=== PATIENT | male | born 1970 | race Caucasian/White ===

== ENCOUNTER 2025-06-25 09:57 | Day surgery (SDC) | payer OTHER ==
--- NOTE | 2025-06-17 11:04 | ELECTROCARDIOGRAPH REPORT ---
[facility] Test Date: 2025-06-17 Test Time: 11:01:28 Pat Name: SULLY SHIELDS Department: [facility]-PRE-OP Patient ID: [facility]-[id number] Room: Gender: M Bullard Operator: RAUL : 1970 Requested By: BRANDY IVERSON Order Number: [id number] Reading MD: Dr. Sukumar Norman Measurements Intervals Gilbert Rate: 82 P: 55 MD: 145 QRS: 43 QRSD: 86 T: 72 QT: 346 QTc: 404 Interpretive Statements Sinus rhythm Abnormal R-wave progression, early transition Electronically Signed On 06-19-2025 14:31:[address] Sukumar Norman Please click the below link to view image of tracing.
[2025-06-17 11:11] LABS: MEAN PLATELET VOLUME 7.5 FL (7.4-10.4); PRE OP HEMATOCRIT 47.1 % (42.0-52.0); PRE OP HEMOGLOBIN 15.9 g/dL (14.0-17.9); PRE OP PLATELET COUNT 283 X10'3 (140-440); PRE OP WHITE BLOOD COUNT 8.4 10'3 (4.8-10.8); RED CELL DISTRIBUTION WIDTH 13.4 % (11.5-14.5)
[2025-06-17 11:32] LABS: CREATININE 0.80 MG/DL (0.60-1.10); PRE OP ALT 45 U/L (30-65); PRE OP ANION GAP 7 (8-16); PRE OP AST 23 U/L (10-37); PRE OP BILIRUB, TOTAL 0.4 MG/DL (0.0-1.0); PRE OP GLUCOSE 110 MG/DL (70-104); PRE OP POTASSIUM 4.3 MMOL/L (3.4-5.1); PRE OP SODIUM 141 MMOL/L (135-145); TOTAL CARBON DIOXIDE 27.7 MMOL/L (24-32); eGFR > 90 ML/MIN
[2025-06-25] VITALS (10 sets, daily range): BP systolic 129–173; BP diastolic 86–116; PULSE 85–100; RESP 13–36; TEMP 98; O2SAT 94–99
[~2025-06-25] VITALS: Ht 185.4 cm; Wt 121.1 kg
[~2025-06-25 09:57] MED LIST: ACET-1025 PO; Cefazolin 3 GM/100ML NS IVPB 100 ML IV ONE; IBUP600T52 PO; LIDO35.4 TOP
[2025-06-25] MEDS: ringers solution, lacted 1,000 ML IV SCH (10:40)
[2025-06-25] MEDS ORDERED: labetalol 20mg/4ml (5mg/ml) syringe IV PRN (10:50)
[2025-06-25] MEDS ORDERED: HYDROmorphone inj. 0.5 MG/0.5 ML DISP.SYRIN IV PRN ×2 (10:50)
[2025-06-25] MEDS ORDERED: ringers solution, lacted 1,000 ML IV SCH (10:50)
[2025-06-25] MEDS ORDERED: ondansetron/PF 4mg/2ml inj IV PRN (10:50)
[2025-06-25] MEDS ORDERED: BUPIVAcaine/PF 2.5mg/ml (0.25%) 10ml vial ONE (11:24)
[2025-06-25] MEDS ORDERED: LIDOcaine 1% (10mg/ml)w/preservative inj. 20ml MDV ONE (11:24)
[2025-06-25] MEDS ORDERED: BUPIVAcaine/PF 5 mg/ml 10ml ONE (11:24)
[2025-06-25] MEDS ORDERED: BUPIVACAINE liposomal/PF 13.3 MG/ML 10mL vial IM ONE (11:25)
[2025-06-25] MEDS ORDERED: LIDOcaine 1% 30ml preserv. free vial ONE (12:24)
[2025-06-25] MEDS ORDERED: rocuronium 10mg/ml inj IV ONE (12:28)
[2025-06-25] MEDS ORDERED: LIDOcaine 2% (20mg/ml) 5ml vial ONE (12:28)
[2025-06-25] MEDS ORDERED: propofol inj 20 ML IV ONE (12:28)
[2025-06-25] MEDS ORDERED: fentaNYL/PF 50MCG/1 ML 2ML syringe ONE (12:28)
[2025-06-25] MEDS ORDERED: midazolam 1 mg/ML 2ml injection ONE (12:28)
--- NOTE | 2025-06-25 12:36 | HISTORY AND PHYSICAL ---
History & Physical Providers to CC CC: BRANDY IVERSON MD ~ History of Present Illness Reason for Admit\Complaint: Umbilical hernia History of Present Illness Interval history and physical exam Patient with a work-related umbilical hernia He is here today for elective repair He was seen in the office greater than 30 days ago but denies any change in his past medical history Please see previous history and physical exam for all pertinent details He is scheduled for robotic assisted laparoscopic mesh repair Allergies: Coded Allergies: No Known Allergies (Unverified , 06/24/25) Home Medications Home Medications Active Reported Lidocaine 5 % Oint...g. 1 Applic TOP PRN PRN Ibuprofen 600 Mg Tablet 1 Tab PO Q8H PRN with food Tylenol Extra Strength (Acetaminophen) 500 Mg Tablet 2 Tab PO TID PRN ROS ROS Reviewed and negative Exam Vitals: Vital Signs Date Time Temp Pulse Resp B/P (MAP) Pulse Ox O2 Delivery O2 Flow Rate FiO2 06/25/25 10:07 98.0 85 16 173/116 (135) 96 Room Air General: 55-year-old male in no acute distress Chest: Lungs clear to auscultation bilaterally Cardiovascular: Regular rate and rhythm without murmurs Abdomen: Reducible umbilical hernia 2-3 cm Problems: (1) Umbilical hernia Assessment & Plan: The risks, benefits, and alternatives to a robotic assisted, laparoscopic umbilical hernia repair with mesh were discussed with the patient. Risks include, but are not limited to, bleeding, infection, injury to intra- abdominal structures, hernia recurrence and chronic postoperative pain. Patient verbalized understanding and wishes to proceed with surgery. We will do so today as scheduled. BRANDY IVERSON MD Jun 25, 2025 12:36
[2025-06-25] MEDS ORDERED: dexamethasone sod phosphate 4mg/ml inj. ONE (12:41)
[2025-06-25] MEDS ORDERED: ondansetron/PF 4mg/2ml inj ONE (12:41)
[2025-06-25] MEDS ORDERED: glycopyrrolate 0.2mg/ml inj ONE (12:58)
[2025-06-25] MEDS: hydrALAZINE 20mg/ml inj. IV PRN (14:03)
[2025-06-25] MEDS ORDERED: oxyCODONE/APAP 5-325mg tablet PO PRN (14:10)
--- NOTE | 2025-06-25 14:11 | OPERATIVE REPORT ---
Operative Report Providers to CC CC: HITESH IVERSON MD ~ Date of Procedure: Jun 25, 2025 Pre-Operative Diagnosis: Umbilical hernia Post-Operative Diagnosis 2 cm umbilical hernia Procedure Performed Robotic assisted, laparoscopic 2 cm umbilical hernia repair with mesh Bilateral transversus abdominis plane nerve blocks by injection using 266 mg of Exparel Surgeon: Hitesh Iverson MD FACS Packaging Manager None Anesthesiologist: Dexter Bradley Type of Anesthesia: General Findings: 2 cm fascial defect at the level of the umbilicus with no herniated intra- abdominal contents Wound class I Complications None Prosthetics\Implants used: 15 cm diameter coated polyester mesh Estimated Blood Loss: Minimal Specimen Removed: None Description of Procedure: Patient was brought to the operating room and identified by the nursing staff and the attending physician. Patient was placed supine and a general anesthesia was induced. Preoperative antibiotics were given. The abdomen was prepped and draped in the standard sterile fashion. Through a left subcostal stab incision the abdomen was accessed with a Veress needle technique. Abdomen was insufflated without incident. The incision was lengthened to accommodate a 12 mm optical trocar and the abdomen was entered under laparoscopic visualization. The abdomen was surveyed laparoscopically. Hernia defect was noted at the level of the umbilicus. No intra-abdominal contents herniated. Under laparoscopic visualization, robotic trochars were placed in the left lateral and left lower quadrant. The [employer] robotic arm was docked to the patient and instruments guided intra-abdominally under laparoscopic visualization. Peritoneal rent was created just lateral of the umbilicus and carried towards the midline until a fascial defect was encountered. The di ssection was carried just below the umbilicus and the infraumbilical fat pad was mobilized inferiorly about 7 cm. The hernia sac was mobilized out of the umbilical hernia space and left attached to the falciform ligament which was mobilized superiorly about 7 cm allowing adequate space for mesh deployment. Hernia defect measured about 2 cm in diameter. Fascial defect(s) were then reapproximated with running, nonabsorbable, 0V lock suture. Good fascial apposition was obtained without significant tension. A coated polyester mesh was then fixed to the anterior abdominal wall with running, absorbable, 2/0, V lock suture. Mesh laid without wrinkles or folds. The mesh measured 12 cm The da Tay instruments were then removed and the robot undocked from the p atient. Bilateral transversus abdominis plane nerve blocks by injection were then placed under laparoscopic visualization using a combination of Marcaine and 266 mg of Exparel. The left subcostal trocar was removed and its fascia closed percutaneously with 0 Vicryl suture under laparoscopic visualization. Remaining trochars were removed after the abdomen was allowed to deflate. Skin was closed at all sites with 4-0 Monocryl sutures and dressed with sterile dressings. Patient was awakened and taken to the postanesthesia care unit in stable condition. Counts repoted as correct: Yes HITESH IVERSON MD Jun 25, 2025 14:11
[2025-06-25] MEDS: fentaNYL/PF 50MCG/1 ML 2ML syringe IV PRN ×2 (14:22→14:32)
== END 2025-06-25 15:26 | disposition home or self-care (01) ==
LOC: PAS 09:57
PROVIDERS: ATTEND Surgery
DX: K42.9 Umbilical hernia without obstruction or gangrene (principal); R94.31 Abnormal electrocardiogram [ECG] [EKG]; E66.9 Obesity, unspecified; G47.33 Obstructive sleep apnea (adult) (pediatric); Z79.1 Long term (current) use of non-steroidal anti-inflammatories (NSAID); Z79.899 Other long term (current) drug therapy; Z98.890 Other specified postprocedural states; Z68.35 Body mass index [BMI] 35.0-35.9, adult
CPT/HCPCS: 36415; 49591; 64488; 80053; 82948; 85025; 93005; C1781; J0360; J0665; J0666; J0690; J1100; J2003; J2250; J2405; J2704; J2710; J3010; J3490; J7030; J7120; Z7506; Z7508; Z7512; A4215; A4618; A6449